=== PATIENT | male | born 1985 | race Two or more races ===

== ENCOUNTER 2022-12-23 20:31 | Emergency (ER) | payer SELFPAY ==
[~2022-12-23] VITALS: Ht 167.6 cm; Wt 88.0 kg
[2022-12-23 20:34] VITALS: BP 164/83; PULSE 103; RESP 16; TEMP 98.5; O2SAT 96
[2022-12-23 21:07] LABS: HEMATOCRIT. 48.2 % (42.0-52.0); HEMOGLOBIN. 16.2 g/dL (14.0-18.0); MEAN CORPUSCULAR HGB CONC 33.7 g/dL (31.0-37.0); MEAN CORPUSCULAR VOLUME 89.1 fL (80.0-94.0); MEAN PLATELET VOLUME 7.1 fl (7.4-10.4); PLATELET 233 x1000/uL (130-400); RED BLOOD CELL COUNT 5.41 mill/uL (4.7-6.1); RED CELL DISTRIBUTION WIDTH 12.4 % (11.6-14.6); WHITE BLOOD COUNT 11.1 x1000/uL (4.5-11.0)
[2022-12-23 21:13] LABS: CHLORIDE 106 mEq/L (98-107); DIFFERENTIAL COMMENT 1; INDEX HEMOLYSI 1 (1-3); INDEX ICTERIC 1 (1-4); INDEX LIPEMIC 1 (1-3); POTASSIUM 4.1 mEq/L (3.5-5.1); SODIUM 135 mEq/L (136-145)
[2022-12-23 21:16] LABS: ALBUMIN 3.9 g/dL (3.4-5.0); CALCIUM 7.9 mg/dL (8.5-10.1); CARBON DIOXIDE 24 mEq/L (21-32); GLUCOSE 127 mg/dL (70-105); UREA NITROGEN BLOOD 15 mg/dL (7-21)
[2022-12-23 21:21] LABS: ALANINE AMINOTRANSFERASE 27 IU/L (13-61); ASPARTATE AMINOTRANSFERASE 20 IU/L (15-37); BILIRUBIN TOTAL 0.3 mg/dL (0.1-1.0); CREATININE 1.1 mg/dL (0.6-1.3); PROTEIN TOTAL 7.3 g/dL (6.0-8.3); TROPONIN I HIGH SENSITIVITY 6 ng/L (<78)
[2022-12-23 23:01] LABS: PLATELET ESTIMATE NORMAL
== END 2022-12-23 23:28 | disposition home or self-care (01) ==
LOC: ER 21:26
DX: R20.2 Paresthesia of skin (principal); R42 Dizziness and giddiness; Z88.5 Allergy status to narcotic agent
CPT/HCPCS: 36415; 80053; 84484; 85025; 93005; 99284